=== PATIENT | female | born 1980 | race Caucasian/White ===

== ENCOUNTER 2017-02-17 13:48 | Emergency (ER) | payer MEDICAID ==
[2017-02-17 13:54] VITALS: BP 126/78
--- NOTE | 2017-02-17 14:41 | ED Physician Documentation ---
PD HPI URI - Stated complaint Stated Complaint: LEFT EAR PX - Chief complaint Chief Complaint: Heent - History obtained from History obtained from: Patient - History of Present Illness Timing - onset: Today Timing duration: Days (1) Timing details: Gradual onset Pain level max: 8 Pain level now: 8 Associated symptoms: Ear pain, Sore throat (for 2 days). No: Fever, Chills, Dry cough, Productive cough Contributing factors: Sick contact Improves by: Rest, Medication Worsened by: Other (swallowing) Similar symptoms before: Has not had sx before Recently seen: Not recently seen Review of Systems Constitutional: denies: Fever, Chills Ears: reports: Ear pain (Left) Nose: reports: Rhinorrhea / runny nose Throat: reports: Sore throat Respiratory: reports: Cough. 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 : None HEENT: None Psych: Depression Musculoskeletal: None Derm: None - Past Surgical History Past Surgical History: No - Present Medications Home Medications: Ambulatory Orders Medication Instructions Recorded Confirmed Azithromycin [Zithromax] 0 mg PO DAILY #6 tablet 02/17/17 Ibuprofen [Motrin] 800 mg PO Q8H PRN #30 tablet 02/17/17 - Social History Does the pt smoke?: Yes Smoking Status: Current every day smoker Does the pt drink ETOH?: No Does the pt have substance abuse?: No Substance Use and Type: Marijuana - Immunizations Immunizations are current?: Yes PD ED PE NORMAL - Vitals Vital signs reviewed: Yes - General General: Alert and oriented X 3, No acute distress - HEENT HEENT: PERRL, Other (L TM is erythematous, dull, bulging, fluid present. R TM normal. Mild posterior oropharyngeal erythema without exudes. Uvula midline. No trismus) - Neck Neck: Supple, no meningeal sign, No adenopathy - Cardiac Cardiac: RRR - Respiratory Respiratory: No respiratory distress, Clear bilaterally - Abdomen Abdomen: Soft, Non tender - Derm Derm: Warm and dry, No rash - Neuro Neuro: Alert and oriented X 3 - Psych Psych: Normal mood, Normal affect Results - Vitals Vitals: Vital Signs - 24 hr 02/17/17 13:52 Temperature 36.3 C L Heart Rate 99 Respiratory 18 Rate Blood Pressure 126/78 O2 Saturation 99 Oxygen O2 Source Room air PD MEDICAL DECISION MAKING - ED course Complexity details: considered differential, d/w patient, d/w family ED course: Patient is a 36-year-old female who presents to the emergency department with what appears to be a viral URI complicated by a left acute otitis media. Will place on antibiotics for this and follow-up with her doctor. She is well- appearing, nontoxic. Afebrile. Tolerating p.o. without difficulty. Patient counseled regarding signs and symptoms for which I believe and urgent re- evaluation would be necessary. Patient with good understanding of and agreement to plan and is comfortable going home at this time This document was made in part using voice recognition software. While efforts are made to proofread this document, sound alike and grammatical errors may occur. Departure - Departure Disposition: 01 Home, Self Care Clinical Impression: Otitis media Qualifiers: Otitis media type: suppurative Laterality: left Chronicity: acute Recurrence: not specified as recurrent Spontaneous tympanic membrane rupture: without spontaneous rupture Qualified Code(s): H66.002 - Acute suppurative otitis media without spontaneous rupture of ear drum, left ear Condition: Good Instructions: ED Otitis Media Acute Adult Follow-Up: your,doctor in 1 week [Other] Prescriptions: Ibuprofen [Motrin] 800 mg PO Q8H PRN #30 tablet PRN Reason: PAIN &/OR FEVER Azithromycin [Zithromax] 0 mg PO DAILY #6 tablet Comments: Take all antibiotics until gone. Return if you worsen. Discharge Date/Time: 02/17/17 15:04
== END 2017-02-17 15:04 | disposition home or self-care (01) ==
LOC: ED 13:48
DX: H66.002 Acute suppurative otitis media without spontaneous rupture of ear drum, left ear (principal); F17.200 Nicotine dependence, unspecified, uncomplicated
CPT/HCPCS: 99283

== ENCOUNTER 2017-02-19 15:12 | Emergency (ER) | payer MEDICAID ==
[2017-02-19] MEDS ORDERED: DEXAMETHASONE 10 MG/ML VIAL PO STA (15:29)
[2017-02-19] MEDS ORDERED: DEXAMETHASONE 10 MG/ML VIAL ONE (15:30)
== END 2017-02-19 15:44 | disposition home or self-care (01) ==
DX: H66.93 Otitis media, unspecified, bilateral (principal); J01.00 Acute maxillary sinusitis, unspecified

== ENCOUNTER 2024-04-20 09:13 | Emergency (ER) | payer MEDICAID ==
[2024-04-20 09:24] VITALS: O2SAT 99
--- NOTE | 2024-04-20 09:56 | XRAY Report ---
PROCEDURE: Ankle 3+V LT INDICATIONS: trauma TECHNIQUE: 3 views of the ankle were acquired. COMPARISON: None. FINDINGS: Bones: No fractures or dislocations. Ankle mortise is normally aligned. No suspicious bony lesions . Soft tissues: No tibiotalar joint effusion. Achilles tendon appears normal. IMPRESSION: No visualized acute fracture or dislocation. However, occult injury cannot be excluded. Recommend art rt interval imaging follow-up in 7-10 days as clinically indicated for additional evaluation. Reviewed by: Joy Mary MD on 04/20/2024 9:55 AM PDT Approved by: Joy Mary MD on 04/20/2024 9:55 AM PDT Station ID: [id number]
--- NOTE | 2024-04-20 11:48 | ED Physician Documentation ---
PD HPI LOWER EXT INJURY - Stated complaint Stated Complaint: BACK PX, SWOLLEN LT ANKLE - Chief complaint Chief Complaint: Ext Problem - History obtained from History obtained from: Patient - History of Present Illness PD HPI LOW EXT INJURY LOCATION: Left, Ankle Type of injury: Other (sleeping on a couch has awakened with leg dangling) Where injury occurred: Home Timing - onset: How many weeks ago (3) Timing - duration: Weeks (3) Timing - details: Gradual onset, Still present Improved by: Rest, Immobilization Worsened by: Moving, Palpating Associated symptoms: Swelling. No: Weakness, Numbness Contributing factors: No: Anticoagulated, Prior ortho surgery Similar symptoms before: Has not had sx before Recently seen: Not recently seen - Additional information Additional information: Shi Aggarwal is a 43-year-old female who is recently undomiciled and she is now sleeping on couches. She has developed some pain in her lower back radiating down the left leg and her pain level is about a 7 out of 10. She is also developed some swelling in her left ankle. She does not remember injuring her foot or ankle prior to this. She does sleep on a couch and has awakened with her left leg dangling from the side. Review of Systems Constitutional: denies: Fever, Chills, Myalgias Eyes: denies: Decreased vision Ears: denies: Ear pain Nose: denies: Rhinorrhea / runny nose, Congestion Throat: denies: Sore throat Cardiac: denies: Chest pain / pressure, Palpitations Respiratory: denies: Dyspnea, Cough GI: denies: Abdominal Pain, Nausea, Vomiting, Constipation, Diarrhea : denies: Dysuria, Frequency Skin: denies: Rash Musculoskeletal: reports: Back pain, Extremity pain, Joint swelling. 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 HEENT: None Psych: Depression Musculoskeletal: None Derm: None - Past Surgical History Past Surgical History: No - Present Medications Home Medications: Ambulatory Orders Medication Instructions Recorded Confirmed Azithromycin [Zithromax] 0 mg PO DAILY #6 tablet 02/17/17 Ibuprofen [Motrin] 800 mg PO Q8H PRN #30 tablet 02/17/17 Amox/Clav 875/125 [Augmentin] 1 each PO Q12H #20 tablet 02/19/17 FLUoxetine [PROzac] 40 mg PO DAILY 02/19/17 02/19/17 - Allergies Allergies/Adverse Reactions: Allergies Allergy/AdvReac Type Severity Reaction Status Date / Time No Known Drug Allergies Allergy Verified 04/20/24 09:22 - Social History Does the pt smoke?: Yes Smoking Status: Current every day smoker Does the pt drink ETOH?: No Does the pt have substance abuse?: No - Immunizations Immunizations are current?: Yes PD ED PE NORMAL - Vitals Vital signs reviewed: Yes (tachy ) - General General: Alert and oriented X 3, No acute distress, Well developed/nourished - HEENT HEENT: Atraumatic, PERRL, EOMI - Neck Neck: Supple, no meningeal sign, No bony TTP - Respiratory Respiratory: No respiratory distress - Back Back: No CVA TTP, No spinal TTP, Other (paraspinous pain to palpation lower lumbar spine into the sciatic notch on the left side. ) - Derm Derm: Normal color, Warm and dry, No rash - Extremities Extremities: No deformity, Other (There is swelling to the left ankle over the lateral malleolus with mild tenderness. No tenderness to the proximal 5th. normal ROM no calf tenderness no cord and able to bear weight without pain. ) - Neuro Neuro: Alert and oriented X 3, cook sauce 2-12 intact, No motor deficit, No sensory deficit, Normal speech Eye Opening: Spontaneous Motor: Obeys Commands Verbal: Oriented GCS Score: 15 - Psych Psych: Normal mood, Normal affect Results - Vitals Vitals: Vital Signs - 24 hr 04/20/24 09:18 Temperature 36.5 C Heart Rate 103 H Respiratory 16 Rate Blood Pressure 128/74 O2 Saturation 99 Oxygen O2 Source Room air PD Medical Decision Making - ED course Complexity details: considered differential, d/w patient ED course: 43-year-old female who has been Surgery and surgery now has pain in her lower back with some sciatica and she has some swelling to the left lower extremity which is explainable by dependent edema as she is waking up with her leg dangling from the couch. She is treated in the emergency department with 10 mg of dexamethasone and 30 mg of Toradol. Departure - Departure Disposition: 01 Home, Self Care Clinical Impression: Dependent edema Sciatica Qualifiers: Laterality: left Qualified Code(s): M54.32 - Sciatica, left side Condition: Stable Instructions: ED Sciatica, ED Leg Swelling Unilateral Follow-Up: Nataly Burr [facility] [Primary Care Provider] - Comments: Shi, today it looks like the swelling you are having in your left ankle is related to having your foot off of the edge of a couch or sleeping on. It is also likely your sciatica is related to this. The recommendation is to find a mattress to sleep on to avoid this swelling and expect the swelling to resolve within 3 days. As far as the sciatica is concerned you should have some improvement over the next 12 hours and that should last about 2 days and it is likely you will need to continue to take both ibuprofen and Tylenol for pain control. Forms: PCP List
[2024-04-20] MEDS: DEXAMETHASONE 10 MG/ML VIAL PO STA (12:20)
[2024-04-20] MEDS: KETOROLAC 30 MG/ML VIAL IM STA (12:20)
[2024-04-20] MEDS: CHERRY SYRUP 10 ML UDC PO ONE (12:20)
[2024-04-20 12:41] VITALS: BP 134/78
== END 2024-04-20 12:31 | disposition home or self-care (01) ==
LOC: ED 09:13
DX: M54.42 Lumbago with sciatica, left side (principal); R60.0 Localized edema; F17.200 Nicotine dependence, unspecified, uncomplicated; Z59.01 Sheltered homelessness
CPT/HCPCS: 73610; 96374; 99283; A9270